=== PATIENT | female | born 1985 | race Caucasian/White ===

== ENCOUNTER 2023-06-16 15:18 | Emergency (ER) | payer MEDICAID | END 2023-06-16 19:30 | disposition home or self-care (01) | LOC: JP.ED 15:18 | DX: O99.613 Diseases of the digestive system complicating pregnancy, third trimester (principal); K59.00 Constipation, unspecified; Z3A.29 29 weeks gestation of pregnancy; Z79.899 Other long term (current) drug therapy | CPT/HCPCS: 76818; 99283 ==